=== PATIENT | male | born 1980 | race African-American/Black ===

== ENCOUNTER 2018-07-24 08:10 | Emergency (ER) | payer SELFPAY ==
[~2018-07-24] VITALS: Ht 170.2 cm; Wt 102.0 kg
[2018-07-24] MEDS ORDERED: KETOROLAC 60MG/2ML VIAL IM ONE (08:45)
[2018-07-24 09:07] VITALS: BP 164/87
== END 2018-07-24 09:11 | disposition home or self-care (01) ==
LOC: ER 08:10
DX: M54.16 Radiculopathy, lumbar region (principal); Z88.6 Allergy status to analgesic agent; Z98.890 Other specified postprocedural states
CPT/HCPCS: 96372; 99283; J1885

== ENCOUNTER 2019-05-04 12:32 | Emergency (ER) | payer SELFPAY ==
[~2019-05-04] VITALS: Ht 170.2 cm; Wt 95.0 kg
[2019-05-04 12:36] VITALS: BP 160/84
[2019-05-04] MEDS ORDERED: ACETAMINOPHEN 325MG TABLET PO ONE (13:30)
== END 2019-05-04 14:30 | disposition home or self-care (01) ==
LOC: ER 12:32
DX: H60.92 Unspecified otitis externa, left ear (principal)
CPT/HCPCS: 99282